=== PATIENT | male | born 1960 | race Caucasian/White ===

== ENCOUNTER 2018-08-19 18:02 | Emergency (ER) | payer SELFPAY ==
[~2018-08-19 18:02] MED LIST: HYDR-653 PO; PER PO; TOBOD OD
--- NOTE | 2018-08-19 18:20 | ER Report ---
History and Physical Time Seen By MD: 18:20 (OLGA PATEL DO) HPI/ROS CHIEF COMPLAINT: Left-sided hip pain HISTORY OF PRESENT ILLNESS: Patient is a 57-year-old male here with complaints of left-sided hip pain status post fall on Sunday. Patient reportedly fell approximately 3 feet off of a ladder on Sunday and has been unable to ambulate since time of fall. Patient reportedly took ibuprofen at the time however has not had improvement since time of onset. He does have left lateral lower back pain as well on examination. Patient is neurovascularly intact at time of evaluation. Patient is hemodynamically stable at time of evaluation. REVIEW OF SYSTEMS: Constitutional: No fever, no chills. Eyes: No discharge. ENT: No sore throat. Cardiovascular: No chest pain, no palpitations. Respiratory: No cough, no shortness of breath. Gastrointestinal: No abdominal pain, no vomiting. Genitourinary: No hematuria. Musculoskeletal: + Left lateral lower back pain, left sided hip pain with range of motion and palpation of the lateral hip Skin: No rashes. Neurological: Neurovascular exam intact in the distal lower extremity (OLGA PATEL DO) Allergies: Coded Allergies: No Known Drug Allergies (Verified , 05/17/14) Home Meds Active Scripts Hydrocodone Bit/Acetaminophen (HYDROCODON-ACETAMINOPHEN 5-325) 1 Each Tablet, 1- 2 EACH PO Q6H for PAIN, #20 TAB Prov:SHABBIR CUEVAS MD 08/19/18 Hydrocodone Bit/Acetaminophen (NORCO 5-325 TABLET) 1 Each Tablet, 1 EACH PO Q4- 6H PRN for PAIN, #30 TAB Prov:JEREMIAH LOW 05/17/14 Reported Medications [None] No Conflict Check, 0 Refills 10/13/08 Hx Smoking: No Smoking Status: Never Smoker Hx Substance Use Disorder: No Hx Alcohol Use: Yes (6 PACK ) (OLGA PATEL DO) Constitutional Vital Sign - Last 24 Hours 08/19/18 08/19/18 08/19/18 08/19/18 18:17 18:18 18:32 18:47 Temp 99.3 Pulse ??? 83 84 ??? Resp 16 B/P (MAP) 140/115 (123) 140/115 Pulse Ox 95 91 O2 Delivery Room Air 08/19/18 08/19/18 08/19/18 4/1/19 19:02 19:17 19:28 19:30 Pulse ??? 82 B/P (MAP) 150/115 (127) 138/98 (111) Pulse Ox 89 08/19/18 08/19/18 08/19/18 08/19/18 19:32 19:47 19:52 20:00 Pulse 80 82 83 B/P (MAP) 143/105 (118) Pulse Ox 90 90 91 08/19/18 08/19/18 08/19/18 08/19/18 20:07 20:22 20:30 20:37 Pulse 82 86 86 B/P (MAP) 156/116 (129) Pulse Ox 90 89 90 08/19/18 08/19/18 08/19/18 08/19/18 20:52 21:00 21:05 21:20 Pulse ??? 85 84 B/P (MAP) 139/112 (121) Pulse Ox 90 88 08/19/18 08/19/18 08/19/18 21:30 21:35 21:50 Pulse 81 82 B/P (MAP) 146/94 (111) Pulse Ox 91 93 (SHABBIR CUEVAS MD) Physical Exam General Appearance: The patient is alert, has no immediate need for airway protection and no signs of toxicity. Uncomfortable appearing Eyes: Pupils equal and round no pallor or injection. ENT, Mouth: Mucous membranes are moist. Respiratory: There are no retractions, lungs are clear to auscultation. Cardiovascular: Regular rate and rhythm. Gastrointestinal: Abdomen is soft and non tender, no masses, bowel sounds normal. Neurological: Neurovascular exam intact in the distal left lower extremity distal to the injury site Skin: Warm and dry, no rashes. Musculoskeletal: Neck is supple non tender.+ Left lateral lower back pain Left hip pain tenderness to palpation on the left lateral hip and with range of motion of the hip, no obvious bony deformity DIFFERENTIAL DIAGNOSIS: After history and physical exam differential diagnosis was considered for fracture, contusion, sprain, contusion (OLGA PATEL DO) Medical Decision Making ED Course/Re-evaluation ED Course Patient is a 57-year-old male here status post fall on Sunday with complaints of left lateral lower back pain, left hip pain. Patient is neurovascularly intact at time of evaluation distal extremity. Patient was given oxycodone 10 mg by mouth. X-ray imaging of the lumbar, pelvis, hip and femur were ordered. Patient was signed out to Dr. Cuevas Decision to Disposition Date: Aug 19, 2018 Decision to Disposition Time: 19:00 (OLGA PATEL DO) ED Course Pt t/o to me with left hip/back pain after fall. Xrays unremarkable; CT demonstr ates nondisplaced acetabular fracture. I consulted Dr. Long who recommends toe-touch wt bearing and pt will f/u with his office for rpt imaging, further eval. Pain controlled, pt comfortable with this plan. Decision to Disposition Date: Aug 19, 2018 Decision to Disposition Time: 22:45 (SHABBIR CUEVAS MD) Depart Departure Latest Vital Signs Vital Signs Date Time Temp Pulse Resp B/P (MAP) Pulse Ox O2 Delivery O2 Flow Rate FiO2 08/19/18 21:50 82 93 08/19/18 21:30 146/94 (111) 08/19/18 18:18 99.3 16 Room Air (SHABBIR CUEVAS MD) Impression: Primary Impression: Acetabular fracture Condition: Improved Disposition: HOME OR SELF-CARE Referrals: DENISE LONG MD 2 Days New Scripts Hydrocodone Bit/Acetaminophen (HYDROCODON-ACETAMINOPHEN 5-325) 1 Each Tablet 1-2 EACH PO Q6H for PAIN, #20 TAB Prov: SHABBIR CUEVAS MD 08/19/18 Patient Instructions: Hip Fracture (ED) Additional Instructions: Call Dr. Long's office for follow up as we discussed. Use crutches at all times when ambulating; you may use 20lb of pressure of weight bearing (you may stabilize yourself with the sole of your foot). Please take miralax or another stool softener when taking the pain medication. Please return for any concerns. Problem Qualifiers Primary Impression: Acetabular fracture Encounter type: initial encounter Sublocation of acetabulum: unspecified portion of acetabulum Fracture type: closed Fracture alignment: nondisplaced Laterality: left Qualified Codes: S32.402A - Unspecified fracture of left acetabulum, initial encounter for closed fracture OLGA PATEL DO Aug 19, 2018 18:20 SHABBIR CUEVAS MD Aug 19, 2018 22:51
[2018-08-19] MEDS ORDERED: oxyCODONE HCL 5 MG CAP PO ONE ×2 (18:45→19:25)
--- NOTE | 2018-08-19 20:48 | RADIOLOGY IMAGING REPORT ---
FACILITY: [facility] PATIENT NAME: Asad Abbott : 1960 MR: [id number] V: [id number] EXAM DATE: ORDERING PHYSICIAN: OLGA PATEL TECHNOLOGIST: Location: [facility] Patient: Asad Abbott : 1960 Visit/Account:[id number] Date of Sevice: 08/19/2018 AP pelvis, one view, left hip, one view, lumbar spine, 2 views, and left femur, 4 views. HISTORY: Fall. COMPARISON: None. Mild degenerative changes are present in the left hip and knee. A 1 cm metallic fragment projects on the medial soft tissues of the distal thigh. The left femur is otherwise unremarkable. Mild wedging is present in the L1 vertebral body. Small to moderate-sized endplate osteophytes and mi nimal to mild loss of disc height are present at T9-10 through L4-5. Small endplate osteophytes, endp late sclerosis, and moderate loss of disc height are present at L5-S1. The L5-S1 facets are hypertrop hic bilaterally. The sacroiliac joints are not widened. The hips are normally aligned. No acute hip fractures are identified. IMPRESSION: Mild L1 vertebral body wedge deformity, chronicity indeterminate. Moderate multilevel thoracolumbar degenerative disc disease. Otherwise negative for acute bony abnormality. COMMENT: The patient is scheduled for a CT scan, see separate report. Report Dictated By: Robert Ferrer MD at 08/19/2018 8:38 PM Report E-Signed By: Robert Ferrer MD at 08/19/2018 8:44 PM WSN:[id number]
--- NOTE | 2018-08-19 20:49 | RADIOLOGY IMAGING REPORT ---
FACILITY: [facility] PATIENT NAME: Asad Abbott : 1960 MR: [id number] V: [id number] EXAM DATE: ORDERING PHYSICIAN: OLGA PATEL TECHNOLOGIST: Location: [facility] [place] Patient: Asad Abbott : 1960 Visit/Account:[id number] Date of Sevice: 08/19/2018 AP pelvis, one view, left hip, one view, lumbar spine, 2 views, and left femur, 4 views. HISTORY: Fall. COMPARISON: None. Mild degenerative changes are present in the left hip and knee. A 1 cm metallic fragment projects on the medial soft tissues of the distal thigh. The left femur is otherwise unremarkable. Mild wedging is present in the L1 vertebral body. Small to moderate-sized endplate osteophytes and mi nimal to mild loss of disc height are present at T9-10 through L4-5. Small endplate osteophytes, endp late sclerosis, and moderate loss of disc height are present at L5-S1. The L5-S1 facets are hypertrop hic bilaterally. The sacroiliac joints are not widened. The hips are normally aligned. No acute hip fractures are identified. IMPRESSION: Mild L1 vertebral body wedge deformity, chronicity indeterminate. Moderate multilevel thoracolumbar degenerative disc disease. Otherwise negative for acute bony abnormality. COMMENT: The patient is scheduled for a CT scan, see separate report. Report Dictated By: Robert Ferrer MD at 08/19/2018 8:38 PM Report E-Signed By: Robert Ferrer MD at 08/19/2018 8:44 PM WSN:[id number]
--- NOTE | 2018-08-19 20:49 | RADIOLOGY IMAGING REPORT ---
FACILITY: PATIENT NAME: Asad Abbott : 1960 MR: [id number] V: [id number] EXAM DATE: ORDERING PHYSICIAN: OLGA PATEL TECHNOLOGIST: Location: [facility] [place] Patient: Asad Abbott : 1960 Visit/Account:[id number] Date of Sevice: 08/19/2018 AP pelvis, one view, left hip, one view, lumbar spine, 2 views, and left femur, 4 views. HISTORY: Fall. COMPARISON: None. Mild degenerative changes are present in the left hip and knee. A 1 cm metallic fragment projects on the medial soft tissues of the distal thigh. The left femur is otherwise unremarkable. Mild wedging is present in the L1 vertebral body. Small to moderate-sized endplate osteophytes and mi nimal to mild loss of disc height are present at T9-10 through L4-5. Small endplate osteophytes, endp late sclerosis, and moderate loss of disc height are present at L5-S1. The L5-S1 facets are hypertrop hic bilaterally. The sacroiliac joints are not widened. The hips are normally aligned. No acute hip fractures are identified. IMPRESSION: Mild L1 vertebral body wedge deformity, chronicity indeterminate. Moderate multilevel thoracolumbar degenerative disc disease. Otherwise negative for acute bony abnormality. COMMENT: The patient is scheduled for a CT scan, see separate report. Report Dictated By: Robert Ferrer MD at 08/19/2018 8:38 PM Report E-Signed By: Robert Ferrer MD at 08/19/2018 8:44 PM WSN:[id number]
[2018-08-19 21:30] VITALS: BP 146/94
--- NOTE | 2018-08-19 21:54 | RADIOLOGY IMAGING REPORT ---
FACILITY: [facility] [place] PATIENT NAME: Asad Abbott : 1960 MR: [id number] V: [id number] EXAM DATE: ORDERING PHYSICIAN: SHABBIR CUEVAS TECHNOLOGIST: Location: [facility] [place] Patient: Asad Abbott : 1960 Visit/Account:[id number] Date of Sevice: 08/19/2018 INDICATION: Fall with pain to the left hip. DATE: 08/19/2018 9:37 PM. TECHNIQUE: CT PELVIS W/O CON, CT VERTEBRA LUMBAR (NON CON). Noncontrast axial CT imaging was perform ed through the left hip and lumbar spine with sagittal and coronal reformats. COMPARISON: Pelvic radiographs of the same day FINDINGS: A fracture of the superior acetabular wall is comminuted but displacement is minimal. Fracture exten ds to the margin of the superior pubic ramus. The femur is intact. No dislocation. There are no acute intrapelvic findings. Vertebral body heights are maintained, and alignment is normal. Severe disc and endplate degenerativ e change at L5-S1. Severe multilevel facet arthropathy. No lumbar spine fracture or dislocation. IMPRESSION: Comminuted fracture of the left acetabular roof. Report Dictated By: Jane Canales MD at 08/19/2018 9:37 PM Report E-Signed By: Jane Canales MD at 08/19/2018 9:51 PM WSN:[email or web address]
--- NOTE | 2018-08-19 21:55 | RADIOLOGY IMAGING REPORT ---
FACILITY: [facility] [place] PATIENT NAME: Asad Abbott : 1960 MR: [id number] V: [id number] EXAM DATE: ORDERING PHYSICIAN: SHABBIR CUEVAS TECHNOLOGIST: Location: Patient: Asad Abbott : 1960 Visit/Account:[id number] Date of Sevice: 08/19/2018 INDICATION: Fall with pain to the left hip. DATE: 08/19/2018 9:37 PM. TECHNIQUE: CT PELVIS W/O CON, CT VERTEBRA LUMBAR (NON CON). Noncontrast axial CT imaging was perform ed through the left hip and lumbar spine with sagittal and coronal reformats. COMPARISON: Pelvic radiographs of the same day FINDINGS: A fracture of the superior acetabular wall is comminuted but displacement is minimal. Fracture exten ds to the margin of the superior pubic ramus. The femur is intact. No dislocation. There are no acute intrapelvic findings. Vertebral body heights are maintained, and alignment is normal. Severe disc and endplate degenerativ e change at L5-S1. Severe multilevel facet arthropathy. No lumbar spine fracture or dislocation. IMPRESSION: Comminuted fracture of the left acetabular roof. Report Dictated By: Jane Canales MD at 08/19/2018 9:37 PM Report E-Signed By: Jane Canales MD at 08/19/2018 9:51 PM WSN:[email or web address]
[2018-08-19] MEDS ORDERED: ACET/HYDROC 5/325MG TH ER ONLY 2 TAB/BOTTLE PO ONE (22:45)
[2018-08-19] MEDS ORDERED: HYDR-385 PO (22:46)
== END 2018-08-19 23:00 | disposition home or self-care (01) ==
LOC: ER 18:33
DX: S32.402A Unspecified fracture of left acetabulum, initial encounter for closed fracture (principal)
CPT/HCPCS: 72100; 72131; 72192; 99284